=== PATIENT | male | born 1985 | race African-American/Black ===

== ENCOUNTER 2017-06-08 10:58 | Emergency (ER) | payer MEDICAID ==
[~2017-06-08] VITALS: Ht 180.3 cm; Wt 77.4 kg
[2017-06-08 11:12] VITALS: BP 110/81
[2017-06-08] MEDS ORDERED: HYDROcodone/APAP 5/325 TABLET ONE (11:41)
[2017-06-08] MEDS ORDERED: HYDROcodone/APAP 5/325 TABLET PO ONE (12:00)
== END 2017-06-08 12:14 | disposition home or self-care (01) ==
LOC: ED 12:08
DX: K02.9 Dental caries, unspecified (principal)
CPT/HCPCS: 99283

== ENCOUNTER 2019-01-25 18:21 | Emergency (ER) | payer MEDICAID ==
[~2019-01-25] VITALS: Ht 177.8 cm; Wt 83.4 kg
[2019-01-25 18:28] VITALS: BP 112/71
== END 2019-01-25 18:58 | disposition home or self-care (01) ==
LOC: ED 18:40
DX: K02.9 Dental caries, unspecified (principal); K08.89 Other specified disorders of teeth and supporting structures; Z88.0 Allergy status to penicillin
CPT/HCPCS: 99283